=== PATIENT | male | born 1980 | race Caucasian/White ===

== ENCOUNTER 2019-01-12 16:10 | Emergency (ER) | payer BC, OTHER ==
[~2019-01-12] VITALS: Ht 180.3 cm; Wt 95.3 kg
[2019-01-12] MEDS ORDERED: SODIUM CHLORIDE 0.9% 1,000 ML IV ONE (17:00)
[2019-01-12] MEDS ORDERED: TETANUS-DIPTH-ACEL PERTUSSIS 0.5ML SYRG IM ONE (17:00)
[2019-01-12 17:19] VITALS: BP 117/79
== END 2019-01-12 18:09 | disposition home or self-care (01) ==
LOC: EDBD 16:10 → ER 16:12
DX: S62.641A Nondisplaced fracture of proximal phalanx of left index finger, initial encounter for closed fracture (principal); W22.8XXA Striking against or struck by other objects, initial encounter; Y93.89 Activity, other specified; Y99.8 Other external cause status; Y92.89 Other specified places as the place of occurrence of the external cause
CPT/HCPCS: 29130; 70450; 73130; 90471; 90715; 96360; 99284; J7030